=== PATIENT | male | born 1955 | race Caucasian/White ===

== ENCOUNTER 2023-10-28 08:08 | Emergency (ER) | payer BC, SELFPAY ==
[2023-10-28 08:20] VITALS: BP 151/99; PULSE 83; RESP 18; TEMP 37.1; O2SAT 96; BMI 35.6
[2023-10-28 08:56] LABS: UTC Influenza A Antigen Negative (Negative)
[2023-10-28 08:57] LABS: UTC Influenza B Antigen Negative (Negative)
--- NOTE | 2023-10-28 09:20 | EXP.UTC ---
Discharge Plan Disposition Patient Disposition: Home, Self-Care Condition: Good Prescriptions Prescriptions: New prednisone [prednisone] 20 mg tablet 20 mg PO BID 3 Days Qty: 6 0RF Referrals Follow up/Referrals: Sara Don DO [Primary Care Provider] - See instructions Activity Restrictions/Add. Instructions Additional Instructions/Restrictions: No sign of a bacterial infection. Likely viral. Viruses can take 7-14 days to run their course. Nasal saline and bulb syringe or nose Rosa M to remove nasal drainage to help with nasal congestion. Hard to eat, drink, sleep with nasal congestion so important to keep this cleaned out. Monitor temp. Tylenol or Motrin as needed for pain or fever Encourage fluids, water, Gatorade, Powerade, Pedialyte if infant/toddler/child Warm salt water gargles Warm fluids Sore throat lozenges Sleep elevated Humidifier/vaporizer Follow-up immediately for new or worsening symptoms or no noticeable improvement over the next 48-72 hours. Clinical Impressions Clinical Impression: Upper respiratory infection Qualifiers: URI type: unspecified viral URI Qualified Code(s): J06.9 - Acute upper respiratory infection, unspecified Instructions Patient Instructions: DI for Viral Upper Respiratory Infection -- Adult Discharge ED Provider: Ming ([facility] [place] General Stated complaint: cough, runny nose, sore throat Mode of Arrival: Ambulatory Source of Information: Patient Limitations: No Limitations Time Seen by Provider: 10/28/23 09:20 Description of Symptoms (Recalled from Triage Doc. by RN): cpugh, FRANCOIS, left ear pain, runny nose, and FRANCOIS HEENT Symptoms (Recalled from RN notes): Yes Resp Symptoms (Recalled from RN notes): No Skin Symptoms (Recalled from RN notes): No MS Symptoms (Recalled from RN notes): No Functional Status (Recalled from RN notes): n/a History of Present Illness Provider Complaint: 68 yr old male presents for cough, left ear pain, clear runny nose, and FRANCOIS for 7 days Related Data Previous Rx's Medication Instructions Recorded prednisone 20 mg tablet 20 mg PO BID 3 days #6 tabs 10/28/23 Allergies Allergy/AdvReac Type Severity Reaction Status Date / Time No Known Allergies Allergy Verified 10/28/23 08:47 Worker's Comp Is this a Worker's Comp case?: No [facility] Disclaimer: The information contained in this section may have been updated after the patient was seen, as this information can be updated by other users. 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) Impacted cerumen, bilateral Surgical History , BEATER DUMPER) History of surgery on right wrist Family History , BEATER DUMPER) Diabetes Sister Brother Heart attack Mother Social History , BEATER DUMPER) Smoking Status: Current every day smoker tobacco type: cigarettes packs per day: 1 alcohol intake: never current occupational status: employed and other Travel in the last 8 weeks: None ROS Obtained: Yes All systems reviewed & no additional complaints except as documented Constitutional Constitutional: Reports system reviewed and no additional complaints, except as documented, Reports as per HPI, Reports body ache, Reports chills, Reports fever(s) and Reports headache(s) Eyes Eyes: Reports system reviewed and no additional complaints, except as documented ENT Ears, Nose, Mouth, and Throat: Reports system reviewed and no additional complaints, except as documented, Reports as per HPI, Reports headache(s), Reports nasal congestion, Reports nasal discharge, Reports post nasal drip, Reports sinus pain, Reports sinus pressure and Reports sore throat Cardiovascular Cardiovascular: Reports system reviewed and no additional complaints, except as documented Respiratory Respiratory: Reports system reviewed and n
[2023-10-28 09:45] VITALS: BP 151/99; PULSE 83; RESP 18; TEMP 37.1; O2SAT 96
== END 2023-10-28 09:45 | disposition home or self-care (01) ==
PROVIDERS: Emergency Provider Nurse Practitioner Family; PCP Family Medicine
DX: R51.9 Headache, unspecified (principal); J06.9 Acute upper respiratory infection, unspecified; R07.0 Pain in throat; R05.9 Cough, unspecified; R09.81 Nasal congestion; H92.02 Otalgia, left ear; B34.9 Viral infection, unspecified; F17.210 Nicotine dependence, cigarettes, uncomplicated
CPT/HCPCS: 87804; 99204; 99212; G0463